=== PATIENT | female | born 1960 ===

== ENCOUNTER 2024-06-07 07:56 | Emergency (ER) | payer SELFPAY ==
[~2024-06-07] VITALS: Ht 162.6 cm; Wt 72.6 kg
[2024-06-07 09:15] VITALS: BP 146/75
== END 2024-06-07 09:45 | disposition home or self-care (01) ==
LOC: ER 07:56
DX: U07.1 COVID-19 (principal); I10 Essential (primary) hypertension; E11.9 Type 2 diabetes mellitus without complications; E03.9 Hypothyroidism, unspecified; Z91.041 Radiographic dye allergy status; Z79.84 Long term (current) use of oral hypoglycemic drugs
CPT/HCPCS: 71046; 99283-25